=== PATIENT | female | born 1975 | race Caucasian/White ===

== ENCOUNTER 2019-05-21 09:04 | Emergency (ER) | payer BC ==
--- NOTE | 2019-05-21 09:27 | RAD ---
Right femur 2 views HISTORY: Femur injury. FINDINGS: Femur is intact. No acute fracture or dislocation. IMPRESSION: Normal exam.
--- NOTE | 2019-05-21 09:27 | RAD ---
XR Pelvis AP STANDARD HISTORY: Injury, pelvic pain FINDINGS: No fracture or dislocation is identified.
--- NOTE | 2019-05-21 09:34 | CT ---
CT BRAIN WITHOUT CONTRAST: HISTORY: Injury, headache FINDINGS: No evidence of acute infarct, hemorrhage, midline shift or abnormal extra-axial fluid collections is seen. The ventricular size is appropriate and the basilar cisterns are patent. The bony calvarium is intact. The mastoid air cells are well aerated. There is mucosal disease in the paranasal sinuses . IMPRESSION: No CT evidence of acute intracranial process.
--- NOTE | 2019-05-21 09:39 | CT ---
CT CERVICAL SPINE WITH CORONAL AND SAGITTAL REFORMATIONS AND NO IV CONTRAST: HISTORY: Level 2 trauma, neck pain FINDINGS: No fracture, subluxation or facet malalignment is identified. No prevertebral soft tissue swelling is apparent. IMPRESSION: No CT evidence for fracture or traumatic subluxation. Discussed over the telephone with ER physician Dr. Nikolai Villa @9:36 AM
--- NOTE | 2019-05-22 08:01 | RAD ---
XR Chest 1 View Portable HISTORY: Injury, chest pain COMPARISON: None FINDINGS: The heart size is normal. The lungs are well expanded without focal areas of consolidation, pneumothorax or pleural effusions. IMPRESSION: No radiographic evidence of acute cardiopulmonary process.
== END 2019-05-21 11:40 | disposition home or self-care (01) ==
LOC: ERS 09:04
DX: S70.11XA Contusion of right thigh, initial encounter (principal); Z79.899 Other long term (current) drug therapy; V69.9XXA Occupant (driver) (passenger) of heavy transport vehicle injured in unspecified traffic accident, initial encounter
CPT/HCPCS: 70450; 71045; 72125; 72170; 96360